=== PATIENT | female | born 1975 | race Two or more races ===

== ENCOUNTER 2018-05-07 19:55 | Emergency (ER) | payer MEDICARE, MEDICAID ==
[~2018-05-07] VITALS: Ht 172.7 cm; Wt 90.7 kg
[~2018-05-07 19:55] MED LIST: GLIM4TAB2 PO; LEVO100T PO; METF1000 PO
[2018-05-07 20:35] VITALS: BP 104/66
[2018-05-07] MEDS ORDERED: AMOX/CLAVULANATE 875 MG TABLET ONE (20:46)
[2018-05-07] MEDS ORDERED: TDAP [DIPH/PERTUSSIS/TET] 0.5 ML VIAL IM ONE ×2 (20:46→21:00)
[2018-05-07] MEDS ORDERED: AMOX/CLAVULANATE 875 MG TABLET PO ONE (21:00)
== END 2018-05-07 20:57 | disposition home or self-care (01) ==
LOC: ER 20:02
DX: S61.032A Puncture wound without foreign body of left thumb without damage to nail, initial encounter (principal); E11.9 Type 2 diabetes mellitus without complications; F17.200 Nicotine dependence, unspecified, uncomplicated; Z98.51 Tubal ligation status; W54.0XXA Bitten by dog, initial encounter; Y93.89 Activity, other specified; Y92.89 Other specified places as the place of occurrence of the external cause; Y99.8 Other external cause status
CPT/HCPCS: 90715